=== PATIENT | male | born 1975 | race Caucasian/White ===

== ENCOUNTER 2016-11-25 12:58 | Emergency (ER) | payer OTHER ==
[~2016-11-25] VITALS: Ht 172 cm; Wt 99.8 kg
[~2016-11-25 12:58] MED LIST: AMOXICILLIN875 MG PO; CLARITIN-D 10 M1 T24 PO; DESENEX1 POW T; LIDEX0.05% T; NYSTATIN CREAM15 GM T; TAMIFLU75 MG PO; TESSALON PERLE100 M1 PO; ZOFRAN ODT4 MG SL
[2016-11-25 13:49] LABS: BILIRUBIN NEGATIVE (NEGATIVE); BLOOD NEGATIVE (NEGATIVE); CLARITY SL CLOUDY (CLEAR); COLOR YELLOW (YELLOW); GLUCOSE NEGATIVE (NEGATIVE); KETONE TRACE (NEGATIVE); LEUKO ESTERASE NEGATIVE (NEGATIVE); NITRITE NEGATIVE (NEGATIVE); PH 5.5 (5.0-9.0); PROTEIN NEGATIVE (NEGATIVE); SPECIFIC GRAVITY >= 1.030 (1.005-1.030)
[2016-11-25 14:14] LABS: BACTERIA 2+; EPITHELIAL CELLS 0-2; MUCOUS TRACE; RBC 0-2 rbc/hpf (0-2); URINE REFLEX COMMENT YES (NO); WBC 0-2 wbc/hpf (0-5)
[2016-11-25] MEDS ORDERED: PYRIDIUM100 MG PO (14:21)
[2017-01-20] MEDS ORDERED: PREDNISONE20 M1 PO (08:36)
[2017-01-20] MEDS ORDERED: SUDAFED 12 HOU120 MG PO (08:36)
== END 2016-11-25 14:34 | disposition home or self-care (01) ==
LOC: ED 12:58
PROVIDERS: Emergency Medicine
DX: R30.0 Dysuria (principal)

== ENCOUNTER 2018-10-14 14:20 | Emergency (ER) | payer OTHER ==
[~2018-10-14] VITALS: Ht 175.2 cm; Wt 98.0 kg
[~2018-10-14 14:20] MED LIST changes: +PREDNISONE20 M1 PO; +PYRIDIUM100 MG PO; +SUDAFED 12 HOU120 MG PO
== END 2018-10-14 16:01 | disposition home or self-care (01) ==
LOC: ED 14:20
DX: S83.92XA Sprain of unspecified site of left knee, initial encounter (principal); W10.8XXA Fall (on) (from) other stairs and steps, initial encounter; Y93.01 Activity, walking, marching and hiking; Y92.89 Other specified places as the place of occurrence of the external cause; Y99.8 Other external cause status

== ENCOUNTER 2019-08-19 12:03 | Emergency (ER) | payer OTHER ==
[~2019-08-19] VITALS: Ht 175.2 cm; Wt 99.3 kg
[2019-08-19] MEDS ORDERED: METHOCARBAMOL500 M1 PO (13:00)
[2019-08-19] MEDS ORDERED: MEDROL DOSEPAK4 MG PO (13:00)
[2019-08-19] MEDS ORDERED: NAPROSYN500 MG PO (13:00)
== END 2019-08-19 13:18 | disposition home or self-care (01) ==
LOC: ED 12:03
DX: S16.1XXA Strain of muscle, fascia and tendon at neck level, initial encounter (principal); X50.1XXA Overexertion from prolonged static or awkward postures, initial encounter; Y93.89 Activity, other specified; Y92.89 Other specified places as the place of occurrence of the external cause; Y99.9 Unspecified external cause status

== ENCOUNTER → 2021-02-20 | Outpatient (CLI) | payer OTHER ==
[~2021-02-20] MED LIST changes: +MEDROL DOSEPAK4 MG PO; +METHOCARBAMOL500 M1 PO; +NAPROSYN500 MG PO
== END | disposition home or self-care (01) ==
LOC: CARD 11:09
PROVIDERS: ATTEND Nurse Practitioner Family
DX: E66.9 Obesity, unspecified (principal); Z86.79 Personal history of other diseases of the circulatory system; Z82.49 Family history of ischemic heart disease and other diseases of the circulatory system

== ENCOUNTER → 2021-03-02 | Outpatient (CLI) | payer OTHER | END | disposition home or self-care (01) | LOC: RAD 12:03 | PROVIDERS: ATTEND Nurse Practitioner Family | DX: M25.551 Pain in right hip (principal) ==

== ENCOUNTER → 2021-12-21 | Outpatient (CLI) | payer OTHER | END | disposition home or self-care (01) | LOC: RAD 12:00 | PROVIDERS: ATTEND Nurse Practitioner Family | DX: M25.561 Pain in right knee (principal) ==

== ENCOUNTER → 2022-07-13 | Outpatient (CLI) | payer OTHER ==
[2022-07-13 09:05] LABS: BASO # 0.1 10*3/uL (0.0-0.1); BASO % 1.1 % (0.0-1.0); EOS # 1.5 10*3/uL (0.0-0.4); EOS % 18.6 % (1.0-4.0); HEMATOCRIT 46.5 % (42.0-52.0); LYMPH # 2.5 10*3/uL (1.3-4.4); LYMPH % 31.1 % (27.0-41.0); MEAN CELL VOLUME 91.4 fl (80.0-94.0); MEAN PLATELET VOLUME 12.1 fl (9.6-12.3); MONO # 0.5 10*3/uL (0.1-1.0); MONO % 5.7 % (3.0-9.0); NEUT # 3.5 10*3/uL (2.3-7.9); PLATELET COUNT AUTOMATED 170 10*3/uL (130-400); RED BLOOD COUNT 5.09 10*6/uL (4.50-5.90); RED CELL DISTRI WIDTH 11.9 % (0-14.5); WHITE BLOOD COUNT 8.1 10*3/uL (4.8-10.8)
[2022-07-13 09:22] LABS: ALKALINE PHOSPHATASE 131 U/L (45-117); BUN 14 mg/dl (7-24); CHLORIDE 109 mmol/L (98-107); CHOLESTEROL 173 mg/dL (<200); CREATININE 0.98 mg/dL (0.70-1.30); LDL CHOLESTEROL 100 mg/dL (9-159); SGOT/AST 13 IU/L (3-35); SGPT/ALT 21 U/L (12-78); SODIUM 140 mmol/L (136-145); TOTAL PROTEIN 7.2 gm/dL (6.4-8.2); TRIGLYCERIDES 206 mg/dl (<150)
== END | disposition home or self-care (01) ==
LOC: LAB 08:33
PROVIDERS: ATTEND Nurse Practitioner Family
DX: E78.1 Pure hyperglyceridemia (principal)

== ENCOUNTER → 2023-05-19 | Outpatient (CLI) | payer OTHER ==
[2023-05-19 11:56] LABS: ALKALINE PHOSPHATASE 113 U/L (46-116); BUN 14 mg/dl (9-23); CHLORIDE 109 mmol/L (98-107); CHOLESTEROL 156 mg/dL (<200); LDL CHOLESTEROL 88 mg/dL (9-159); POTASSIUM 4.2 mmol/L (3.4-5.1); SGPT/ALT 17 U/L (10-49); TOTAL PROTEIN 7.1 gm/dL (6.0-8.0); TRIGLYCERIDES 190 mg/dl (<150)
== END | disposition home or self-care (01) ==
LOC: LAB 10:48
PROVIDERS: ATTEND Nurse Practitioner Family
DX: E78.1 Pure hyperglyceridemia (principal)

== ENCOUNTER 2023-10-24 14:55 | Emergency (ER) | payer OTHER ==
[~2023-10-24] VITALS: Ht 175.2 cm; Wt 107.0 kg
[2023-10-24] MEDS ORDERED: ONDANSETRON4 MG SL (17:06)
== END 2023-10-24 17:09 | disposition home or self-care (01) ==
LOC: ED 14:55
DX: B34.9 Viral infection, unspecified (principal); R11.10 Vomiting, unspecified; Z20.822 Contact with and (suspected) exposure to COVID-19; Z98.890 Other specified postprocedural states

== ENCOUNTER → 2023-12-13 | Outpatient (CLI) | payer OTHER ==
[~2023-12-13] MED LIST changes: +ONDANSETRON4 MG SL
== END | disposition home or self-care (01) ==
LOC: RAD 13:14
PROVIDERS: ATTEND Chiropractor Orthopedic
DX: S39.012A Strain of muscle, fascia and tendon of lower back, initial encounter (principal); M47.816 Spondylosis without myelopathy or radiculopathy, lumbar region; X58.XXXA Exposure to other specified factors, initial encounter; Y93.89 Activity, other specified; Y92.89 Other specified places as the place of occurrence of the external cause; Y99.8 Other external cause status

== ENCOUNTER 2024-11-15 12:46 | Emergency (ER) | payer OTHER ==
[~2024-11-15] VITALS: Ht 175.2 cm; Wt 98.9 kg
[2024-11-15] MEDS ORDERED: IBUPROFEN 800 MG TAB PO ONE ×2 (13:05→13:20)
== END 2024-11-15 13:42 | disposition home or self-care (01) ==
LOC: ED 12:46
DX: S83.91XA Sprain of unspecified site of right knee, initial encounter (principal); Z98.890 Other specified postprocedural states; W19.XXXA Unspecified fall, initial encounter; Y93.89 Activity, other specified; Y92.89 Other specified places as the place of occurrence of the external cause; Y99.8 Other external cause status

== ENCOUNTER 2025-08-16 14:15 | Emergency (ER) | payer OTHER ==
[~2025-08-16] VITALS: Ht 175.2 cm; Wt 100.7 kg
== END 2025-08-16 16:06 | disposition home or self-care (01) ==
LOC: ED 14:15
DX: S90.32XA Contusion of left foot, initial encounter (principal); W18.49XA Other slipping, tripping and stumbling without falling, initial encounter; Y93.02 Activity, running; Y92.89 Other specified places as the place of occurrence of the external cause; Y99.8 Other external cause status